=== PATIENT | female | born 2000 | race Caucasian/White ===

== ENCOUNTER 2020-04-04 15:22 | Emergency (ER) | payer SELFPAY ==
[~2020-04-04] VITALS: Ht 149.9 cm; Wt 47.3 kg
[2020-04-04 16:01] VITALS: TEMP 98.1
[2020-04-04] MEDS ORDERED: ZOFRAN ODT4 MG PO (16:08)
[2020-04-04 16:20] VITALS: BP 111/67; PULSE 85
== END 2020-04-04 16:20 | disposition home or self-care (01) ==
LOC: COL.ER 15:22
DX: B34.9 Viral infection, unspecified (principal); Z20.828 Contact with and (suspected) exposure to other viral communicable diseases

== ENCOUNTER 2021-05-03 21:55 | Emergency (ER) | payer BC ==
[~2021-05-03] VITALS: Ht 149.9 cm; Wt 47.7 kg
[~2021-05-03 21:55] MED LIST: ZOFRAN ODT4 MG PO
[2021-05-03 22:11] VITALS: TEMP 97.8
[2021-05-03] MEDS ORDERED: ECHINACEA 5001 EACH (22:56)
[2021-05-03] MEDS ORDERED: [UNRECOGNIZED DRUG - OTHER] PO (22:56)
[2021-05-03] MEDS ORDERED: [UNRECOGNIZED DRUG - OTHER] (22:57)
[2021-05-03 23:52] LABS: BASO # 0.1 (0.0-0.2); BASO % 0.9 % (0.0-2.0); EOS # 0.4 (0.0-0.7); EOS % 4.9 % (0-4.0); GRAN # 5.1 (1.4-6.5); GRAN % 57.7 % (42.2-75.2); HEMATOCRIT 37.6 % (35.0-45.0); HEMOGLOBIN 12.4 g/dl (12.0-15.0); LYMPH # 2.5 (1.2-3.4); LYMPH % 27.6 % (20.0-51.0); MEAN CELL VOLUME 93 fl (80.0-95.0); MEAN CORPUSCULAR HEMOGLOBIN 31 pg (26.0-32.0); MEAN CORPUSCULAR HGB CONC 33 g/dl (33.0-37.0); MEAN PLATELET VOLUME 9.4 fl (7.4-10.4); MONO # 0.8 (0.1-0.6); MONO % 8.6 % (1.7-9.3); PLATELET COUNT 215 K/mm3 (130-400); RED BLOOD COUNT 4.04 M/mm3 (4.10-5.30); REDCELL DISTRIBUTION WIDTH-CV 12.9 % (11.5-14.5)
[2021-05-03 23:59] LABS: ALANINE AMINOTRANSFERASE 12 U/L (4-34); ALKALINE PHOSPHATASE 67 U/L (50-136); ANION GAP 5 mmol/L (7-16); AST,SGOT 21 U/L (15-37); BILIRUBIN,TOTAL < 0.1 mg/dL (0.0-1.0); BLOOD UREA NITROGEN 14 mg/dL (7-17); CALCIUM 9.1 mg/dL (8.4-10.2); CARBON DIOXIDE 26 mmol/L (22-30); CHLORIDE 106 mmol/L (98-107); CREATININE, serum 0.56 (0.52-1.25); GLUCOSE 92 mg/dL (74-106); POTASSIUM 3.9 mmol/L (3.4-5.0); SODIUM 137 mmol/L (137-145); TOTAL PROTEIN 6.5 gm/dL (6.4-8.2)
[2021-05-04 00:10] LABS: COLLECTION METHOD CLEAN CATCH
[2021-05-04 00:13] LABS: TROPONIN-I < 0.012 ng/mL (0.000-0.035)
[2021-05-04 00:16] LABS: MUCOUS Present /lpf; PH 6 (5-8); URINE APPEARANCE Hazy; URINE BACTERIA None Seen /hpf; URINE BILIRUBIN Negative (NEGATIVE); URINE BLOOD Negative (NEGATIVE); URINE COLOR Yellow; URINE GLUCOSE Negative (NEGATIVE); URINE KETONE Negative (NEGATIVE); URINE LEUKOCYTE ESTERASE Negative (NEGATIVE); URINE NITRATE Negative (NEGATIVE); URINE PROTEIN(semi-quant) Negative (NEGATIVE); URINE RBC 0-2 /hpf; URINE UROBILINOGEN Negative (NEGATIVE); URINE WBC 0-2 /hpf
[2021-05-04 02:30] VITALS: BP 124/70; PULSE 76
== END 2021-05-04 02:30 | disposition home or self-care (01) ==
LOC: COL.ER 21:55
PROVIDERS: Emergency Medicine
DX: R55 Syncope and collapse (principal); R25.1 Tremor, unspecified; Z87.820 Personal history of traumatic brain injury
CPT/HCPCS: J7030

== ENCOUNTER → 2021-05-18 | Outpatient (CLI) | payer BC ==
[~2021-05-18] MED LIST changes: +ECHINACEA 5001 EACH; +[UNRECOGNIZED DRUG - OTHER]; +[UNRECOGNIZED DRUG - OTHER] PO
== END ==
LOC: ZCOL.LAB 09:04
DX: R05 Cough (principal)